=== PATIENT | female | born 1940 | race Caucasian/White ===

== ENCOUNTER 2020-03-03 07:15 | Inpatient (IN) | payer BC ==
[2020-03-03] MEDS ORDERED: Sodium Chloride 0.9% 1,000 ML IV ONE ×2 (07:33→12:23)
[2020-03-03] MEDS ORDERED: Ondansetron 4 MG/2 ML SDV IVPUSH ONE (07:34)
--- NOTE | 2020-03-03 08:05 | EDM.PDOC ---
ED HPI GENERAL MEDICAL PROBLEM - General Chief Complaint: Gastrointestinal Problem Stated Complaint: LOW BLOOD PRESSURE, DIZZINESS Time Seen by Provider: 03/03/20 07:20 Source of Information: Reports: Patient, Old Records History Limitations: Reports: No Limitations - History of Present Illness INITIAL COMMENTS - FREE TEXT/NARRATIVE: 80-year-old female with his brought in by EMS for evaluation of hypotension and tachycardia. Patient has been a resident at the [facility] since November. She's had 5 day history of diarrhea with associated nausea. She feels weak and dizzy. She denies any new onset of chest pain or shortness of breath. She denies any abdominal pain. She's had recent hospital admission in November with a similar complaints of generalized weakness and diarrhea. Her past medical history is significant for congestive heart failure, ischemic cardiomyopathy, coronary artery disease status post CABG in 2004 and PCI in 2011. A recent non-ST elevated CA requiring aspiration thrombo-embolectomy and balloon angioplasty in 2018. She has atrial fibrillation with chronic anticoagulation. She's had a prior negative C. difficile upon her admission for diarrhea in November. He had further workup to which included a HIDA scan was negative for acute cholecystitis.. She does have a history of the acute kidney insufficiency due to her cardiorenal syndrome secondary to his CHF exacerbation she was diuresed for this. Her heart rate today is running in the 100 teens and her blood pressure upon arrival was 80/60. Lab work was ordered patient was started on IV with 1 L normal saline running EKG shows atrial fibrillation with a rapid ventricular response there is no evidence of ST elevation acutely. Onset: Gradual Onset Date: 02/27/20 Duration: Day(s): (5 days), Constant Location: Reports: Generalized Severity: Moderate Improves with: Reports: None Worsens with: Reports: None Associated Symptoms: Reports: Nausea/Vomiting, Weakness. Denies: Confusion, Chest Pain, Cough, Diaphoresis, Fever/Chills, Shortness of Breath, Syncope - Related Data Allergies Allergy/AdvReac Type Severity Reaction Status Date / Time latex Allergy Cannot Verified 03/03/20 07:40 Remember Home Meds: Home Meds Acetaminophen [Tylenol] 650 mg PO Q4H PRN 03/03/20 [History] Clopidogrel [Plavix] 75 mg PO DAILY 03/03/20 [History] Colchicine 0.6 mg PO BID 03/03/20 [History] Levothyroxine Sodium [Synthroid] 137 mcg PO ACBREAKFAST 03/03/20 [History] Loperamide HCl [Imodium A-D] 2 mg PO ASDIRECTED PRN 03/03/20 [History] Magnesium Hydroxide [Milk of Magnesia] 30 ml PO DAILY PRN 03/03/20 [History] Omeprazole Magnesium [Prilosec Otc] 20 mg PO ACBREAKFAST 03/03/20 [History] Ondansetron [Zofran ODT] 4 mg PO Q8H PRN 03/03/20 [History] Rosuvastatin Calcium 20 mg PO BEDTIME 03/03/20 [History] Spironolactone [Aldactone] 12.5 mg PO DAILY 03/03/20 [History] Venlafaxine HCl [Venlafaxine ER] 75 mg PO BEDTIME 03/03/20 [History] Warfarin Sodium [Coumadin] 1.5 mg PO SUTUWETHSA@1800 03/03/20 [History] Warfarin Sodium [Coumadin] 3 mg PO MOFR@1800 03/03/20 [History] carvediloL [Carvedilol] 25 mg PO BID 03/03/20 [History] lisinopriL [Lisinopril] 2.5 mg PO DAILY 03/03/20 [History] metFORMIN HCl [Metformin HCl ER] 500 mg PO DAILY 03/03/20 [History] ED ROS GENERAL - Review of Systems Review Of Systems: See Below Constitutional: Reports: Weakness, Fatigue. Denies: Diaphoresis, Weight Gain HEENT: Reports: No Symptoms Respiratory: Denies: Shortness of Breath, Cough Cardiovascular: Reports: Lightheadedness. Denies: Chest Pain ED EXAM, GENERAL - Physical Exam Exam: See Below Exam Limited By: No Limitations General Appearance: Alert, No Apparent Distress, Obese Eye Exam: Bilateral Eye: EOMI, PERRL Ears: Hearing Grossly Normal Nose: Normal Inspection Throat/Mouth: Normal Inspection, Normal Voice, No Airway Compromise Head: Atraumatic Neck: Normal Inspection, Supple. No: Carotid Bruit, Lymphadenopathy (L), Lymphadenopathy (R) Respiratory/Chest: No Respiratory Distress, Lungs Clear, Normal Breath Sounds Cardiovascular: Tachycardia Peripheral Pulses: 1+: Dorsalis Pedis (L), Dorsalis Pedis (R), 2+: Carotid (L), Carotid (R), Radial (L), Radial (R) GI/Abdominal: Normal Bowel Sounds, Soft, Non-Tender, No Organomegaly, No Abnormal Bruit Back Exam: Normal Inspection, Paraspinal Tenderness (beltline). No: CVA Tenderness (L), CVA Tenderness (R), Vertebral Tenderness Extremities: Normal Inspection, Non-Tender, No Pedal Edema Neurological: Alert, Oriented, No Motor/Sensory Deficits Psychiatric: Normal Affect, Normal Mood Skin Exam: Dry, Intact, Cool, Other (Pale). No: Diaphoretic Lymphatic: No Adenopathy EKG INTERPRETATION EKG Date: 03/03/20 Time: 07:45 Rhythm: A-Fib Rate (Beats/Min): 119 QRS: Normal ST-T: Normal QT: Normal Comparison: Other: () EKG Interpretation Comments: Atrial fibrillation with RVR Lateral infarct, age undetermined Abnormal ECG Course - Vital Signs Last Recorded V/S: Last Vital Signs Temp 97.8 F 03/03/20 08:45 Pulse 108 H 03/03/20 08:45 Resp 20 03/03/20 08:45 BP 90/51 L 03/03/20 08:45 Pulse Ox 97 03/03/20 08:48 - Orders/Labs/Meds Orders: Active Orders 24 hr Category Date Time Status Patient Status [ADT] Routine ADT 03/03/20 08:45 Active EKG Documentation Completion [RC] ASDIRECTED Care 03/03/20 07:33 Active Height and Weight [RC] UPON Care 03/03/20 08:44 Active Intake and Output [RC] QSHIFT Care 03/03/20 08:48 Active Oxygen Therapy [RC] PRN Care 03/03/20 08:48 Active Pulse Oximetry [RC] PRN Care 03/03/20 08:48 Active Vital Signs [RC] Q4H Care 03/03/20 08:45 Active INR,PT,PROTHROMBIN TIME [COAG] Stat Lab 03/03/20 07:30 Received UA W/MICROSCOPIC [URIN] Stat Lab 03/03/20 07:32 Ordered Labs: Laboratory Tests 03/03/20 03/03/20 Range/Units 07:30 07:30 WBC 2.40 L (5.00-10.00) 10^3/uL RBC 4.33 (3.80-5.50) 10^6/uL Hgb 13.5 (12.0-16.0) g/dL Hct 38.3 (37.0-47.0) % MCV 88.5 (82.0-92.0) fL MCH 31.2 H (27.0-31.0) pg MCHC 35.2 (32.0-36.0) g/dL RDW 26.0 H (11.5-14.5) % Plt Count 203 (150-400) 10^3/uL Immature Gran % (Auto) 0.8 (0.0-5.0) % Neut % (Auto) 65.1 (50.0-70.0) % Lymph % (Auto) 15.8 L (20.0-40.0) % [place] % (Auto) 17.9 H (2.0-8.0) % Eos % (Auto) 0.0 L (1.0-3.0) % Baso % (Auto) 0.4 (0.0-1.0) % Neut # (Auto) 1.56 L (2.50-7.00) 10^3/uL Lymph # (Auto) 0.38 L (1.00-4.00) 10^3/uL [place] # (Auto) 0.43 (0.10-0.80) 10^3/uL Eos # (Auto) 0.00 L (0.10-0.30) 10^3/uL Baso # (Auto) 0.01 (0.00-0.10) 10^3/uL Immature Gran # (Auto) 0.02 (0.00-0.50) 10^3/uL Sodium 138 (136-145) mmol/L Potassium 4.3 (3.3-5.3) mmol/L Chloride 96 L (98-115) mmol/L Carbon Dioxide 25.5 (21.0-32.0) mmol/L Anion Gap 20.8 H (5-15) mmol/L BUN 80 H* (6-25) mg/dL Creatinine 4.02 H (0.51-1.17) mg/dL Est Cr Clr Drug Dosing TNP Estimated GFR (MDRD) 11 mL/min Glucose 99 (75 - 99) mg/dL Calcium 8.9 (8.7-10.3) mg/dL Total Bilirubin 1.8 H (0.2-1.0) mg/dL AST 95 H (15-37) U/L ALT 67 (12-78) U/L Alkaline Phosphatase 75 (46-116) IU/L Troponin I 0.16 H* (0.00-0.070) ng/mL B-Natriuretic Peptide 817 H (0-100) pg/mL Total Protein 7.3 (6.4-8.2) g/dL Albumin 3.63 (3.00-4.80) g/dL Lipase 45 L (73-393) U/L Meds: Medications Discontinued Medications Generic Name Dose Route Start Last Admin Trade Name Freq PRN Reason Stop Dose Admin Sodium Chloride 1,000 mls @ 999 mls/hr 03/03/20 07:33 03/03/20 07:41 Normal Saline IV 03/03/20 08:33 999 mls/hr .BOLUS ONE Administration Ondansetron HCl 4 mg 03/03/20 07:34 03/03/20 07:42 Zofran IVPUSH 03/03/20 07:35 4 mg ONETIME ONE Administration - Re-Assessments/Exams Free Text/Narrative Re-Assessment/Exam: 03/03/20 09:32 She reports the again no pain or symptoms of shortness of breath or chest pain currently at rest in the ER. IV access was available and to start on normal saline given 1 L of fluids. I discussed with the patient the findings on her lab results which include elevated renal lab results electrolyte imbalance as well as elevated troponin. She is a DNR. Patient states that she would like to stay here currently at this time for treatment. I discussed this with Vinnie Urban NP and will place her admit order on telemetry. Departure - Departure Time of Disposition: 09:00 Disposition: Admitted As Inpatient 68 Condition: Poor Clinical Impression: Dehydration, Elevated troponin, JOCELYNE (acute kidney injury) CHF (congestive heart failure) Qualifiers: Heart failure type: right-sided Heart failure chronicity: chronic Qualified Code(s): I50.812 - Chronic right heart failure Diarrhea Qualifiers: Diarrhea type: unspecified type Qualified Code(s): R19.7 - Diarrhea, unspecified - Discharge Information Sepsis Event Note - Focused Exam Vital Signs: Vital Signs Temp Pulse Resp BP Pulse Ox 05/07/20 08:32 95.9 F L 118 H 20 88/51 L 97 Date Exam was Performed: 03/03/20 Time Exam was Performed: 10:05 - My Orders Last 24 Hours: My Active Orders 03/03/20 07:30 INR,PT,PROTHROMBIN TIME [COAG] Stat 03/03/20 07:32 UA W/MICROSCOPIC [URIN] Stat 03/03/20 07:33 EKG Documentation Completion [RC] ASDIRECTED 03/03/20 08:44 Height and Weight [RC] UPON 03/03/20 08:45 Patient Status [ADT] Routine Vital Signs [RC] Q4H 03/03/20 08:48 Intake and Output [RC] QSHIFT Oxygen Therapy [RC] PRN Pulse Oximetry [RC] PRN - Assessment/Plan Last 24 Hours: My Active Orders 03/03/20 07:30 INR,PT,PROTHROMBIN TIME [COAG] Stat 03/03/20 07:32 UA W/MICROSCOPIC [URIN] Stat 03/03/20 07:33 EKG Documentation Completion [RC] ASDIRECTED 03/03/20 08:44 Height and Weight [RC] UPON 03/03/20 08:45 Patient Status [ADT] Routine Vital Signs [RC] Q4H 03/03/20 08:48 Intake and Output [RC] QSHIFT Oxygen Therapy [RC] PRN Pulse Oximetry [RC] PRN Assessment:: 1. Dehydration 2. Diarrhea 3. Tachycardia, atrial fibrillation with RVR 4. Hypotension likely secondary to dehydration 5. Acute kidney injury with history of chronic kidney disease 6. Elevated troponin 7. Coronary artery disease, a history of an CA and most recent PCI in 2019. Plan: 1. Admission, telemetry, IV hydration, serial troponins. 2. Reviewed and discussed the patient's history as well as a lab results with Vinnie Urban NP [facility]. Will take over for admission status. 3. Patient is a DNR. 4. She agrees to be admitted at [facility].
[2020-03-03 08:13] LABS: CHLORIDE,CL 96 mmol/L (98-115)
[2020-03-03 09:30] LABS: SODIUM,NA 138 mmol/L (136-145)
[2020-03-03 09:31] LABS: ANION GAP 20.8 mmol/L (5-15)
[2020-03-03] MEDS ORDERED: Loperamide 2 MG Cap PO PRN (12:06)
[2020-03-03] MEDS ORDERED: Acetaminophen 325 MG Tab PO PRN (12:06)
[2020-03-03] MEDS ORDERED: Magnesium Hydroxide 400 MG/5 ML Susp 30 ML Cup PO PRN (12:06)
[2020-03-03] MEDS ORDERED: Ondansetron 4 MG Tab.DIS PO PRN (12:06)
--- NOTE | 2020-03-03 12:25 | PCM.HP.2 ---
H&P History of Present Illness - General Date of Service: 03/03/20 Admit Problem/Dx: Admission Diagnosis/Problem Admission Diagnosis/Problem Dehydration Source of Information: Patient, Old Records, Provider, RN - Related Data Allergies/Adverse Reactions: Allergies Allergy/AdvReac Type Severity Reaction Status Date / Time latex Allergy Cannot Verified 03/03/20 07:40 Remember Home Medications: Home Meds Acetaminophen [Tylenol] 650 mg PO Q4H PRN 03/03/20 [History] Clopidogrel [Plavix] 75 mg PO DAILY 03/03/20 [History] Colchicine 0.6 mg PO BID 03/03/20 [History] Levothyroxine Sodium [Synthroid] 137 mcg PO ACBREAKFAST 03/03/20 [History] Loperamide HCl [Imodium A-D] 2 mg PO ASDIRECTED PRN 03/03/20 [History] Magnesium Hydroxide [Milk of Magnesia] 30 ml PO DAILY PRN 03/03/20 [History] Omeprazole Magnesium [Prilosec Otc] 20 mg PO ACBREAKFAST 03/03/20 [History] Ondansetron [Zofran ODT] 4 mg PO Q8H PRN 03/03/20 [History] Rosuvastatin Calcium 20 mg PO BEDTIME 03/03/20 [History] Spironolactone [Aldactone] 12.5 mg PO DAILY 03/03/20 [History] Venlafaxine HCl [Venlafaxine ER] 75 mg PO BEDTIME 03/03/20 [History] Warfarin Sodium [Coumadin] 1.5 mg PO SUTUWETHSA@1800 03/03/20 [History] Warfarin Sodium [Coumadin] 3 mg PO MOFR@1800 03/03/20 [History] carvediloL [Carvedilol] 25 mg PO BID 03/03/20 [History] lisinopriL [Lisinopril] 2.5 mg PO DAILY 03/03/20 [History] metFORMIN HCl [Metformin HCl ER] 500 mg PO DAILY 03/03/20 [History] Past Medical History Cardiovascular History: Reports: Bypass Respiratory History: Reports: None Genitourinary History: Reports: None Musculoskeletal History: Reports: Arthritis Endocrine/Metabolic History: Reports: None Hematologic History: Reports: None Oncologic (Cancer) History: Reports: None - Past Surgical History HEENT Surgical History: Reports: Cataract Surgery Female Surgical History: Reports: Section, Hysterectomy Social & Family History - Tobacco Use Smoking Status *Q: Never Smoker - Caffeine Use Caffeine Use: Reports: Coffee - Recreational Drug Use Recreational Drug Use: No H&P Review of Systems - Review of Systems: Review Of Systems: See Below General: Reports: Weakness, Fatigue. Denies: Fever, Chills HEENT: Reports: No Symptoms Pulmonary: Reports: No Symptoms Cardiovascular: Reports: Lightheadedness. Denies: Chest Pain, Palpitations Gastrointestinal: Reports: Diarrhea Genitourinary: Denies: Hematuria Musculoskeletal: Reports: No Symptoms Skin: Reports: Pallor, Bruising (chronic bruising arms) Psychiatric: Reports: No Symptoms Neurological: Reports: No Symptoms Hematologic/Lymphatic: Reports: Easy Bruising Immunologic: Reports: No Symptoms Exam - Exam Exam: See Below - Vital Signs Vital Signs: Last Vital Signs Temp 98.1 F 03/03/20 10:56 Pulse 115 H 03/03/20 10:56 Resp 20 03/03/20 10:56 BP 76/51 L 03/03/20 10:56 Pulse Ox 100 03/03/20 10:56 Weight: 184 lb - Exam Quality Assessment: DVT Prophylaxis. No: Supplemental Oxygen General: Alert, Oriented, Cooperative. No: Mild Distress HEENT: Conjunctiva Clear, Mucosa Moist & [place], Nares Patent Neck: Supple Lungs: Clear to Auscultation, Normal Respiratory Effort. No: Rales, Rhonchi, Rub, Wheezing Cardiovascular: Irregular Rhythm, Tachycardia GI/Abdominal Exam: Soft, Non-Tender Rectal (Female) Exam: Deferred Back Exam: No: CVA Tenderness (L), CVA Tenderness (R) Extremities: No Pedal Edema Peripheral Pulses: 2+: Radial (L), Radial (R) Skin: No: Rash, [place] Neurological: Cranial Nerves Intact Neuro Extensive - Mental Status: Alert, Oriented x3, Memory Intact Neuro Extensive - Motor, Sensory, Reflexes: CN II-XII Intact Psychiatric: Alert, Labile Mood - Patient Data Lab Results Last 24 hrs: Laboratory Results - last 24 hr 03/03/20 03/03/20 03/03/20 Range/Units 07:30 07:30 07:30 WBC 2.40 L (5.00-10.00) 10^3/uL RBC 4.33 (3.80-5.50) 10^6/uL Hgb 13.5 (12.0-16.0) g/dL Hct 38.3 (37.0-47.0) % MCV 88.5 (82.0-92.0) fL MCH 31.2 H (27.0-31.0) pg MCHC 35.2 (32.0-36.0) g/dL RDW 26.0 H (11.5-14.5) % Plt Count 203 (150-400) 10^3/uL Immature Gran % (Auto) 0.8 (0.0-5.0) % Neut % (Auto) 65.1 (50.0-70.0) % Lymph % (Auto) 15.8 L (20.0-40.0) % [place] % (Auto) 17.9 H (2.0-8.0) % Eos % (Auto) 0.0 L (1.0-3.0) % Baso % (Auto) 0.4 (0.0-1.0) % Neut # (Auto) 1.56 L (2.50-7.00) 10^3/uL Lymph # (Auto) 0.38 L (1.00-4.00) 10^3/uL [place] # (Auto) 0.43 (0.10-0.80) 10^3/uL Eos # (Auto) 0.00 L (0.10-0.30) 10^3/uL Baso # (Auto) 0.01 (0.00-0.10) 10^3/uL Immature Gran # (Auto) 0.02 (0.00-0.50) 10^3/uL PT 136.2 H (8.9-11.4) SEC INR 14.4 H* (0.9-1.1) Sodium 138 (136-145) mmol/L Potassium 4.3 (3.3-5.3) mmol/L Chloride 96 L (98-115) mmol/L Carbon Dioxide 25.5 (21.0-32.0) mmol/L Anion Gap 20.8 H (5-15) mmol/L BUN 80 H* (6-25) mg/dL Creatinine 4.02 H (0.51-1.17) mg/dL Est Cr Clr Drug Dosing TNP Estimated GFR (MDRD) 11 mL/min Glucose 99 (75 - 99) mg/dL Calcium 8.9 (8.7-10.3) mg/dL Total Bilirubin 1.8 H (0.2-1.0) mg/dL AST 95 H (15-37) U/L ALT 67 (12-78) U/L Alkaline Phosphatase 75 (46-116) IU/L Troponin I 0.16 H* (0.00-0.070) ng/mL B-Natriuretic Peptide 817 H (0-100) pg/mL Total Protein 7.3 (6.4-8.2) g/dL Albumin 3.63 (3.00-4.80) g/dL Lipase 45 L (73-393) U/L Result Diagrams: 03/03/20 07:30 03/04/20 07:25 Sepsis Event Note - Evaluation Sepsis Screening Result: No Definite Risk - Focused Exam Vital Signs: Vital Signs Temp Pulse Pulse Resp BP Pulse Ox Pulse Ox 03/03/20 10:56 98.1 F 115 H 20 76/51 L 100 03/03/20 08:48 97 97 03/03/20 08:45 97.8 F 108 H 20 90/51 L 97 03/03/20 08:32 95.9 F L 118 H 20 88/51 L 97 Date Exam was Performed: 03/04/20 Time Exam was Performed: 11:06 Problem List Initiated/Reviewed/Updated: Yes Orders Last 24hrs: Active Orders 24 hr Category Date Time Status Patient Status [ADT] Routine ADT 03/03/20 08:45 Active EKG Documentation Completion [RC] ASDIRECTED Care 03/03/20 07:33 Active Height and Weight [RC] UPON Care 03/03/20 08:44 Active Intake and Output [RC] QSHIFT Care 03/03/20 08:48 Active Oxygen Therapy [RC] PRN Care 03/03/20 08:48 Active Pulse Oximetry [RC] PRN Care 03/03/20 08:48 Active Vital Signs [RC] Q4H Care 03/03/20 08:45 Active UA W/MICROSCOPIC [URIN] Stat Lab 03/03/20 07:32 Ordered Assessment/Plan Comment:: History of present illness Mrs Guzman is a 80-year-old female that was brought in by EMS for evaluation of hypotension and tachycardia. Patient has been a resident at the [facility] since November. She's had 5-day history of diarrhea with associated nausea and she has been complaining of weakness and dizziness. She denies any new onset of chest pain or shortness of breath. She denies any abdominal pain. She's had recent hospital admission in November with a similar complaints of generalized weakness and diarrhea. Pertinent PMH: CHF; ischemic cardiomyopathy, CAD status post CABG in 2004 and PCI in 2011. A recent NSTEMI requiring aspiration thrombo-embolectomy and balloon angioplasty in 2019, Afib. She's had a prior negative C. difficile upon her admission for diarrhea in November. Her further workup to which included a HIDA scan was negative for acute cholecystitis. She does have a history of the acute kidney insufficiency due to her cardiorenal syndrome secondary to his CHF exacerbation she was diuresed for this. Pertinent ED/lab findings EKG: Atrial fibrillation, RVR INR 14.4 BNP 817 (far below baseline) Trop; 0.16 hypotension, 80/60 IV 1 L Shortly after arrival to the floor lab consulted me regarding wide swings in chemistry profile and troponin,. Initially potassium was 6.1 with troponin 0.34 however lab states this was corrected to current values. Acute hospital problems --Supratherapeutic INR --NSTEMI, suggest type II demand, 2/2 to RVR, with history of ischemic cardiomyopathy/CAD --Atrial fibrillation, RVR, suspect exacerbated 2/2 fluid volume deficit --JOCELYNE, suspect prerenal with underlying chronic renal dz --Hypotension/dehydration Chronic problems --Heart failure --cholecystitis/biliary dyskinesia, GI referral as o/p --Hypothyroidism-levothyroxine --Hyperlipidemia-Crestor --T2DM, holding metformin 2/2 JOCELYNE --obesity, morbid --Depression, Overall plan now PO vitamin K 5 mg x 1 now, INR in a.m. with expectation INR will be reduced, daily INR, monitor for signs of bleeding Hold anticoagulation Reassess troponin, Telemetry Indwelling catheter due to need for I&O, IV fluids, 300 cc/h then chane to 100 cc/h after 1,000 cc completion Orthostatics at 1700 Hold metformin
[2020-03-03] MEDS ORDERED: Sodium Chloride 0.9% 1,000 ML IV SCH ×2 (16:00→22:30)
[2020-03-03] MEDS: Sodium Chloride 0.9% 1,000 ML IV SCH (19:41)
[2020-03-03] MEDS: Venlafaxine 37.5 MG Cap.ER PO SCH (20:41)
[2020-03-04] MEDS: Sodium Chloride 0.9% 1,000 ML IV SCH ×5 (06:33→18:52)
[2020-03-04] MEDS ORDERED: Levothyroxine 25 MCG Tab PO SCH (07:30)
[2020-03-04] MEDS ORDERED: Levothyroxine 112 MCG Tab PO SCH (07:30)
[2020-03-04] MEDS ORDERED: Omeprazole 20 MG Cap.CR PO SCH (07:30)
[2020-03-04 08:17] LABS: ANION GAP 22.4 mmol/L (5-15)
--- NOTE | 2020-03-04 11:06 | PCM.PN ---
- General Info Date of Service: 03/04/20 Functional Status: Reports: Tolerating Diet. Denies: Ambulating, Urinating ( 200 cc past 12 hours output) - Review of Systems General: Denies: Fever, Weakness, Fatigue, Malaise, Chills HEENT: Reports: No Symptoms Pulmonary: Denies: Shortness of Breath, Pleuritic Chest Pain, Cough Cardiovascular: Denies: Chest Pain, Palpitations, Orthopnea, Edema Gastrointestinal: Reports: Diarrhea. Denies: Abdominal Pain, Constipation, Decreased Appetite, Nausea Genitourinary: Reports: Hematuria, Other (indwelling catheter) Musculoskeletal: Reports: No Symptoms Skin: Reports: Pallor, Dryness. Denies: Diaphoresis Neurological: Reports: Difficulty Walking. Denies: Confusion, Dizziness, Numbness, Weakness Psychiatric: Denies: Confusion - Patient Data Vitals - Most Recent: Last Vital Signs Temp 97.4 F 03/04/20 07:00 Pulse 123 H 03/04/20 07:00 Resp 20 03/04/20 07:00 BP 85/57 L 03/04/20 07:00 Pulse Ox 96 03/04/20 07:00 Orthostatic Blood Pressure [ 84/55 Standing] Orthostatic Blood Pressure [ 94/66 Sitting] Orthostatic Blood Pressure [ 90/59 Supine] Weight - Most Recent: 184 lb I&O - Last 24 Hours: Intake & Output 03/03/20 03/04/20 03/04/20 22:59 06:59 14:59 Intake Total 2643 1894 Output Total 150 50 Balance 2493 1844 Lab Results Last 24 Hours: Laboratory Results - last 24 hr 03/03/20 03/03/20 03/04/20 Range/Units 14:05 17:55 07:25 PT (8.9-11.4) SEC INR (0.9-1.1) Sodium 139 138 (136-145) mmol/L Potassium 4.4 4.3 (3.3-5.3) mmol/L Chloride 100 103 (98-115) mmol/L Carbon Dioxide 23.4 16.9 L (21.0-32.0) mmol/L Anion Gap 20.0 H 22.4 H (5-15) mmol/L BUN 81 H* 82 H* (6-25) mg/dL Creatinine 4.37 H 4.36 H (0.51-1.17) mg/dL Est Cr Clr Drug Dosing 8.39 8.41 mL/min Estimated GFR (MDRD) 10 10 mL/min Glucose 101 H 109 H (75 - 99) mg/dL Calcium 8.1 L 7.8 L (8.7-10.3) mg/dL Troponin I 0.15 H* 0.18 H* (0.00-0.070) ng/mL 03/04/20 Range/Units 07:25 PT 163.8 H (8.9-11.4) SEC INR > 10.0 H* (0.9-1.1) Sodium (136-145) mmol/L Potassium (3.3-5.3) mmol/L Chloride (98-115) mmol/L Carbon Dioxide (21.0-32.0) mmol/L Anion Gap (5-15) mmol/L BUN (6-25) mg/dL Creatinine (0.51-1.17) mg/dL Est Cr Clr Drug Dosing mL/min Estimated GFR (MDRD) mL/min Glucose (75 - 99) mg/dL Calcium (8.7-10.3) mg/dL Troponin I (0.00-0.070) ng/mL Med Orders - Current: Current Medications Acetaminophen (Tylenol) 650 mg PO Q4H PRN PRN Reason: Pain Sodium Chloride (Normal Saline) 1,000 mls @ 150 mls/hr IV ASDIRECTED [facility] Last Admin: 03/04/20 06:33 Dose: 125 mls/hr Levothyroxine Sodium (Levothyroxine) 112 mcg PO ACBREAKFAST [facility] Last Admin: 03/04/20 06:36 Dose: 112 mcg Levothyroxine Sodium (Levothyroxine) 25 mcg PO ACBREAKFAST [facility] Last Admin: 03/04/20 06:36 Dose: 25 mcg Loperamide HCl (Imodium) 2 mg PO ASDIRECTED PRN PRN Reason: Diarrhea Last Admin: 03/04/20 02:41 Dose: 2 mg Magnesium Hydroxide (Milk Of Magnesia) 30 ml PO DAILY PRN PRN Reason: Constipation Omeprazole (Omeprazole) 20 mg PO ACBREAKFAST [facility] Last Admin: 03/04/20 06:36 Dose: 20 mg Ondansetron HCl (Zofran Odt) 4 mg PO Q8H PRN PRN Reason: Nausea Venlafaxine HCl (Effexor Xr) 75 mg PO BEDTIME [facility] Last Admin: 03/03/20 20:41 Dose: 75 mg Discontinued Medications Sodium Chloride (Normal Saline) 1,000 mls @ 999 mls/hr IV .BOLUS ONE Stop: 03/03/20 08:33 Last Admin: 03/03/20 07:41 Dose: 999 mls/hr Sodium Chloride (Normal Saline) 1,000 mls @ 100 mls/hr IV ASDIRECTED [facility] Stop: 03/03/20 19:00 Last Infusion: 03/03/20 17:54 Dose: 500 mls/hr Sodium Chloride (Normal Saline) 1,000 mls @ 300 mls/hr IV .BOLUS ONE Stop: 03/03/20 15:42 Last Admin: 03/03/20 12:56 Dose: 300 mls/hr Sodium Chloride (Normal Saline) 1,000 mls @ 500 mls/hr IV ASDIRECTED [facility] Stop: 03/03/20 23:31 Last Admin: 03/03/20 22:30 Dose: 500 mls/hr Ondansetron HCl (Zofran) 4 mg IVPUSH ONETIME ONE Stop: 03/03/20 07:35 Last Admin: 03/03/20 07:42 Dose: 4 mg Phytonadione (Aquamephyton) 5 mg PO ONETIME ONE Stop: 03/03/20 12:06 Last Admin: 03/03/20 12:50 Dose: 5 mg - Exam Quality Assessment: DVT Prophylaxis. No: Supplemental Oxygen General: Alert, Oriented, Cooperative, No Acute Distress HEENT: Other (dry Mouth, dry tongue, slightly sunken eyes) Neck: Supple, No JVD Lungs: Clear to Auscultation, Normal Respiratory Effort Cardiovascular: Irregular Rhythm, Tachycardia GI/Abdominal Exam: Normal Bowel Sounds, Soft (Female) Exam: Deferred Back Exam: No: CVA Tenderness (L), CVA Tenderness (R) Extremities: No Pedal Edema Skin: Dry Psy/Mental Status: Alert, Normal Affect Sepsis Event Note - Evaluation Sepsis Screening Result: No Definite Risk - Focused Exam Vital Signs: Vital Signs Temp Pulse Resp BP Pulse Ox 03/04/20 07:00 97.4 F 123 H 20 85/57 L 96 03/04/20 02:56 98.2 F 120 H 20 95/68 94 L Date Exam was Performed: 03/04/20 Time Exam was Performed: 18:41 - Problem List Review Problem List Initiated/Reviewed/Updated: Yes - My Orders Last 24 Hours: My Active Orders 03/03/20 12:06 Urinary Catheter Assessment [RC] 0900,2100 Acetaminophen [Tylenol] 650 mg PO Q4H PRN Loperamide [Imodium] 2 mg PO ASDIRECTED PRN Magnesium Hydroxide [Milk of Magnesia] 30 ml PO DAILY PRN Ondansetron [Zofran ODT] 4 mg PO Q8H PRN 03/03/20 12:09 Resuscitation Status Routine 03/03/20 12:15 Farrar Catheter Insertion [Insert Urinary Catheter] [OM.PC] Q24H 03/03/20 14:29 Bedrest Bedside Commode [RC] ASDIRECTED 03/03/20 17:00 Orthostatic Vital Signs [RC] 1700 03/03/20 20:00 Sodium Chloride 0.9% [Normal Saline] 1,000 ml IV ASDIRECTED 03/03/20 21:00 Venlafaxine [Effexor XR] 75 mg PO BEDTIME 03/03/20 22:39 Communication Order [RC] 0900,2100 03/03/20 Lunch [employer] [employer] Diet [DIET] Low Sodium [Sodium Restricted Diet] [DIET] Renal Non-Dialysis Diet [DIET] 03/04/20 07:30 Levothyroxine 112 mcg PO ACBREAKFAST Levothyroxine 25 mcg PO ACBREAKFAST Omeprazole 20 mg PO ACBREAKFAST - Plan Plan:: History of present illness Mrs Guzman is a 80-year-old female that was brought in by EMS for evaluation of hypotension and tachycardia. Patient has been a resident at the [facility] since November. She's had 5-day history of diarrhea with associated nausea and she has been complaining of weakness and dizziness. She denies any new onset of chest pain or shortness of breath. She denies any abdominal pain. She's had recent hospital admission in November with a similar complaints of generalized weakness and diarrhea. Pertinent PMH: CHF; ischemic cardiomyopathy, CAD status post CABG in 2004 and PCI in 2011. A recent NSTEMI requiring aspiration thrombo-embolectomy and balloon angioplasty in 2019, Afib. She's had a prior negative C. difficile upon her admission for diarrhea in November. Her further workup to which included a HIDA scan was negative for acute cholecystitis. She does have a history of the acute kidney insufficiency due to her cardiorenal syndrome secondary to his CHF exacerbation she was diuresed for this. Pertinent ED/lab findings EKG: Atrial fibrillation, RVR INR 14.4 BNP 817 (far below baseline) Trop; 0.16 hypotension, 80/60 IV 1 L Shortly after arrival to the floor lab consulted me regarding wide swings in chemistry profile and troponin,. Initially potassium was 6.1 with troponin 0.34 however lab states this was corrected to current values. Acute hospital problems --Supratherapeutic INR, severe, with mild hematuria, vit k PO today --NSTEMI, suggest type II demand, 2/2 to RVR, with history of ischemic cardiomyopathy/CAD, poor troponin renal clearance --Atrial fibrillation, holding chronic anticoagulation, RVR, suspect exacerbated 2/2 fluid volume deficit --JOCELYNE, suspect prerenal with underlying chronic renal dz, no sx of fluid overload --Hypotension/dehydration, --Diarrhea, reasses c-diff --physically deconditioned Sub acute Recent JOCELYNE/cardiorenal syndrome due to CHF exacerbation. Chronic problems --Heart failure, although BNP over 800--well below patient's baseline --cholecystitis/biliary dyskinesia, GI referral as o/p --Hypothyroidism-levothyroxine --Hyperlipidemia-Crestor --T2DM, holding metformin 2/2 JOCELYNE --obesity, morbid --Depression, Plan today; vitamin K 5 mg x 1 now, INR in a.m. with expectation INR will be reduced eventually especially if renal improvement, monitor for signs of major leeding Hold anticoagulation Telemetry cont Indwelling catheter due to need for I&O, Aggresive IV fluids, 400 per hour for now. Will reassess every 2 hours urinary output, signs of fluid overload etc. and make adjustments accordingly Hold metformin Patient is a DO NOT RESUSCITATE, although patient clinically looks good there are risks of ongoing renal failure, cardiorenal syndrome as we hydrate her, major bleeding due to elevated INR. Patient has stated multiple times she does not want to be transferred and she wants her care done locally here at [facility].
[2020-03-04] MEDS ORDERED: Phytonadione 10 MG in Sodium Chloride 0.9% 50 ML IV ONE (18:57)
[2020-03-04] MEDS ORDERED: Furosemide 40 MG/4 ML VIAL IVPUSH STA (19:02)
[2020-03-04 19:16] LABS: O2 DELIVERY DEVICE ROOM AIR; PCO2 ARTERIAL 30 mmHG (35-45)
[2020-03-04 19:17] LABS: BASE EXCESS ARTERIAL -14 mmol/L (-2-3); BICARBONATE,ARTERIAL 13.3 mmol/L (22-26); O2 SATURATION ARTERIAL 94 % (95-98); PO2 ARTERIAL 83 mmHG (80-105)
[2020-03-04 19:33] LABS: ANION GAP 22.6 mmol/L (5-15)
[2020-03-04] MEDS: Venlafaxine 37.5 MG Cap.ER PO SCH (21:00)
[2020-03-04] MEDS ORDERED: Norepinephrine 4 MG in Dextrose 5% in Water 246 ML IV SCH ×2 (21:30)
[2020-03-05] MEDS ORDERED: LEVOTHYROXINE SODIUM 137 MCG PO SCH (07:30)
== END 2020-03-04 21:50 | DRG 469 ==
LOC: KA.ED 07:15 → KA.MS 08:45
PROVIDERS: ADMIT Physician Assistant; ATTEND Nurse Practitioner Family
DX: N17.9 Acute kidney failure, unspecified (principal); R79.1 Abnormal coagulation profile; E86.0 Dehydration; I24.8 Other forms of acute ischemic heart disease; I25.5 Ischemic cardiomyopathy; I25.10 Atherosclerotic heart disease of native coronary artery without angina pectoris; Z66 Do not resuscitate; I48.91 Unspecified atrial fibrillation; E03.9 Hypothyroidism, unspecified; F32.9 Major depressive disorder, single episode, unspecified; R31.9 Hematuria, unspecified; R19.7 Diarrhea, unspecified; I50.9 Heart failure, unspecified; E78.5 Hyperlipidemia, unspecified; E11.22 Type 2 diabetes mellitus with diabetic chronic kidney disease; E66.01 Morbid (severe) obesity due to excess calories; I95.9 Hypotension, unspecified; I25.2 Old myocardial infarction; Z95.1 Presence of aortocoronary bypass graft; Z79.890 Hormone replacement therapy; Z79.899 Other long term (current) drug therapy; Z79.01 Long term (current) use of anticoagulants; Z91.040 Latex allergy status; Z95.5 Presence of coronary angioplasty implant and graft; Z68.33 Body mass index [BMI] 33.0-33.9, adult
CPT/HCPCS: 36415; 36600; 51702; 80048; 80053; 82803; 83690; 83880; 84484; 85025; 85610; 93005; 96374; 99284; 99285-25; A9270-GY; J1940; J2405; J3430; J7030; J7050; J7060